=== PATIENT | female | born 1990 | race Caucasian/White ===

== ENCOUNTER 2016-11-27 19:45 | Inpatient (IN) | payer MEDICAID ==
[~2016-11-27] VITALS: Ht 170.2 cm; Wt 81.3 kg
--- NOTE | 2016-11-27 20:24 | NUR ---
PT TO ED VIA TRIAGE W/ C/O LOW BACK PAIN X 1 DAY W/ SOME VAGINAL BLEEDING PT STATES SHE IS 4 WEEKS . PT TO [facility] MD AWARE ORDERS RECEIVED CONT TO MONITOR
--- NOTE | 2016-11-27 20:57 | NUR ---
URINE COLLECTED AND RESULTED MD MCKEON
[2016-11-27 21:51] LABS: BASOPHIL % 0.6 % (0-2); PLATELET COUNT 262 x10^3mcL (130-400)
--- NOTE | 2016-11-27 21:58 | NUR ---
PT MEDICATED PER MD ORDER PT STATES SHE NO LONGER IS HAVING ANY DISCHARGE CONT TO MONITOR
--- NOTE | 2016-11-27 23:23 | NUR ---
REPORT CALLED TO FLOOR RADHA MCRAE ALL QUESTIONS ASKED AND ANSWERED PT TRANSFERED TO FLOOR VIA [facility] IN STABLE CONDITION W/ ALL PERSONAL BELONGINGS
[2016-11-27 23:43] VITALS: BP 124/62
--- NOTE | 2016-11-27 23:47 | NUR ---
RECEIVED PT FROM ED VIA NIKKO. ORIENTED PT TO ROOM AND SURRUONDINGS. IV NOTED TO LAC PATENT ADN INTACT. TELE 26 PLACED ON PT READING NSR. INSTRUCTED PT ON THE USE OF CALL LIGHT FOR ASSISTANCE. ENDORSE PT TO PRIMARY NURSE THOR
[2016-11-27 23:48] LABS: CHOLESTEROL/HDL RATIO 3.8; MAGNESIUM 2.1 mg/dL (1.8-2.4); PHOSPHOROUS 3.9 mg/dL (2.5-4.9)
--- NOTE | 2016-11-27 23:53 | NUR ---
RECEIVED REPORT FROM ED AND RESOURCE RN SURU. PATIENT DENIES PAIN AT THIS TIME. IV SITE TO LEFT AC, PATENT AND INTACT. IV FLUID STARTED PER DOCTOR'S ORDER. PATIENT ORIENTED TO ROOM AND CALL LIGHT. BED IN LOWEST POSITION. CALL LIGHT WITHIN REACH. WILL CONTINUE TO MONITOR.
[2016-11-27 23:54] LABS: FREE T4 0.82 ng/dL (0.76-1.46); FREE THYROXINE INDEX 2.3 ug/dL (1.4-4.5); T4(THYROXINE) 7.3 ug/dL (4.7-13.3)
[2016-11-28 00:35] LABS: microscopic required? NO
[2016-11-28 00:47] LABS: T3 TOTAL 1.11 ng/mL
[2016-11-28 00:51] LABS: UA SPECIFIC GRAVITY 1.015 (1.005-1.035); urine erythrocyte NEGATIVE (NEGATIVE)
[2016-11-28 01:08] LABS: AMPHETAMINE QUAL UR NONE DETECTED (NEG <=1000)
--- NOTE | 2016-11-28 05:06 | NUR ---
PATIENT RESTED IN INTERVALS THROUGHOUT THE NIGHT. NO DISTRESS NOTED. MEDICATED FOR BACK PAIN WITH MORPHINE IVP X 2 PER DOCTOR'S PRN ORDER AND MEDICATED FOR HEADACHE WITH TYLENOL PO X 1. PAIN MANAGED THROUGHOUT THE NIGHT. ALL NEEDS MET. SAFETY AND COMFORT MEASURES MAINTAINED. BED IN LOWEST POSITION. CALL LIGHT WITHIN REACH. WILL CONTINUE TO MONITOR AND ENDORSE TO NEXT SHIFT NURSE.
[2016-11-28 05:54] VITALS: BP 118/59
[2016-11-28 06:42] LABS: CARBON DIOXIDE 25.9 mmol/L (21-32); CHLORIDE SERUM 106 mmol/L (98-107); CREATININE SERUM 0.7 mg/dL (0.6-1.0); GFR1 > 60 mL/min; GLUCOSE SERUM 109 mg/dL (74-106); SODIUM SERUM 139 mmol/L (136-145)
[2016-11-28 06:47] LABS: BASOPHIL % 0.5 % (0-2); PLATELET COUNT 234 x10^3mcL (130-400); RED CELL DISTRIBUTION WIDTH 13.9 % (11.5-14.5)
--- NOTE | 2016-11-28 08:00 | NUR ---
PT AWAKE AND ALERT. TEMP 97.5. TELE #26 SINUS RHYTHM WITH PAC FIRST DEGREE BLOCK. RESP 18 EVEN. BREATH SOUNDS CLEAR. NO COUGH OR SOB. PULSE OX 97% RA. ABD SOFT, BOWEL TONES PRESENT. C/O DISCOMFORT TO LEFT LOWER QUADRANT AND AROUND TO LEFT FLANK 6/10 AT THIS TIME. LAST RECEIVED IV MORPHINE AT 0645 WITH MILD EFFECT. NO EDEMA. PULSES PRESENT SCD IN PLACE. IV PATENT LAC INFUSING NORMAL SALINE 100CC/HR. REMAINS NPO. AWAITING CONSULT WITH DR Sushant ZARCO. FAMILY AT BEDSIDE. SIDR RAILS UP X2. CALL LIGHT IN REACH.
--- NOTE | 2016-11-28 09:10 | NUR ---
DR DAVENPORT AND MEDICAL TEAM IN ON ROUNDS. CHARGE AND PRIMARY NURSE PRESENT. DISCUSSED PLAN OF CARE, AWAITING CONSULT WITH DR DELGADO. VERBALIZED UNDERSTANDING.
--- NOTE | 2016-11-28 09:30 | NUR ---
C/O PAIN TO LEFT LOWER QUADRANT OF ABD GOING AROUND TO LEFT LOWER BACK 9/10. MED WITH MORPHINE SULFATE 2MG IVP ORDERED.
--- NOTE | 2016-11-28 09:50 | NUR ---
REPORTS "PAIN NOW 08/20. LITTLE BIT BETTER." AMBULATES WELL TO BATHROOM. IV CONTINUES PATENT. WILL CONTINUE TO MONITOR.
[2016-11-28 10:09] VITALS: BP 96/54
--- NOTE | 2016-11-28 11:00 | NUR ---
DR DELGADO HERE. UPDATED WITH PT STATUS. COPY OF ULTRASOUND REVIEWED. ORDERED METHOTREXATE 100MG IM FOR 1200.
--- NOTE | 2016-11-28 12:30 | NUR ---
DISCUSSED WITH CHARGE NURSE TEODORA GARCIA WITH METHOTREXATE DOSE. DISCUSSED WITH LASHAY GARCIA DIRECTOR. POLICY REVIEWED. SHE WILL SPEAK WITH DR DAVENPORT FOR CLARIFICATION.
--- NOTE | 2016-11-28 13:09 | NUR ---
PT C/O LEFT LOWER ABD PAIN NOW COMING AROUND TO MIDDLE LOWER ABD REGION AND AROUND TO LEFT FLANK 10/21. NO FACIAL GRIMMACE NOTED. SPEECH CALM. MED WITH MORPHINE SULFATE 2MG IVP ORDERED. FAMILY AT BEDSIDE.
--- NOTE | 2016-11-28 13:20 | NUR ---
LASHAY GARCIA DIRECTOR HERE. DISCUSSED WITH CHARGE NURSE TEODORA GARCIA AND PRIMARY NURSE LATOYA GARCIA CONVERSATION WITH DR DAVENPORT.
--- NOTE | 2016-11-28 13:30 | NUR ---
DR MONTEJO HERE. LASHAY RN DIRECTOR UPDATED HER WITH CONVERSATION WITH DR DAVENPORT RE:METHOTREXATE ADMINISTRATION. DR MONTEJO SPOKE WITH DR CATHERINE. METHOTREXATE TO BE GIVEN BY RESIDENT. REGULAR DIET ORDERED. REPORTS "PAIN IS BETTER 08/20." VAGINAL DRAINAGE SPOTTING AT THIS TIME. WILL CONTINUE TO MONITOR. CALL LIGHT IN REACH.
--- NOTE | 2016-11-28 14:09 | NUR ---
DR JOSEPH AND DR CATHERINE HERE. REVIEWED PT STATUS, ORDER AND POLICY FOR METHOTREXATE.
[2016-11-28 14:32] VITALS: BP 105/67
--- NOTE | 2016-11-28 15:15 | NUR ---
DR CATHERINE IN TO SPEAK WITH PT AND DOCUMENTED. DR INFORMED PT AND THAT THERE WAS A HEARTBEAT THAT IF THE PREGNANACY CONTINUED THAT THE TUBE WOULD BURST AND SHE WOULD HAVE BLEEDING AND BE LIFE THREATENING. PT AND VERBALIZED UNDERSTANDING AND GAVE CONSENT TO TAKE MEDICATION.
--- NOTE | 2016-11-28 15:15 | NUR ---
DR CATHERINE IN TO SPEAK WITH PATIENT AT THIS TIME REGARDING METHOTREXATE MEDICATION ADMINISTRATION (SEE EMAR) INCLUDING SIDE EFFECTS, AND RISKS. AT BEDSIDE, ASSISTED WITH TRANSLATION NEEDED, PATIENT GAVE CONSENT TO TAKE THE MEDICATION. RADHA KLEIN AT BEDSIDE.
--- NOTE | 2016-11-28 15:42 | NUR ---
DR CATHERINE AND DR JOSEPH HERE. AGAIN REVIEWED WITH AND MEDICATION METHOTREXATE, ACTIONS, EFFECTS OF MEDICATION WHICH WILL CAUSE CRAMPING, VAGINAL SPOTTING TO BLEEDING, NAUSEA AND DIARRHEA. IT WILL CAUSE FETUS TO PASS. PATIENT AND VERBALIZED UNDERSTANDING. DR JOSEPH IN GOWN, GLOVES AND FACE MASK KERRI UP MEDICATION USING ASEPTIC TECHNIQUE. IM MEDICATION METHOTREXATE 100MG GIVEN IM TO LEFT BUTTOCKS. PT TOLERATED WELL. SHARPS PLACED IN BIOHAZARD BAG AND TAKEN TO PHARMACY DIRECTED. OTHER USED ITEMS PLACED IN YELLOW BAG AND TAKEN TO THUNDER IN HAZARDOUS WASTE DISPOSAL CONTAINER. WILL CONTINUE TO MONITOR PT. CALL LIGHT IN REACH.
--- NOTE | 2016-11-28 16:00 | NUR ---
HR=62. BP=95/55. PULSE OX 98% RA. MAP 66. CALL LIGHT IN REACH.
[2016-11-28 17:35] VITALS: BP 95/55
[2016-11-28 17:53] LABS: BILIRUBIN DIRECT 0.08 mg/dL (0.0-0.2); BILIRUBIN TOTAL 0.31 mg/dL (0.20-1.00); TOTAL PROTEIN, SERUM 6.6 g/dL (6.4-8.2)
[2016-11-28 17:57] LABS: ALBUMIN 3.3 g/dL (3.4-5.0)
--- NOTE | 2016-11-28 18:01 | NUR ---
PT C/O MILD DISCOMFORT TO LEFT LOWER ABD AND LOWER BACK 7/10. MED WITH MORPHINE SULFATE 2MG AND ZOFRAN 4MG IVP. AT BEDSIDE.
--- NOTE | 2016-11-28 18:30 | NUR ---
PT REPORTS NO PAIN RIGHT NOW. AT BEDSIDE. VOIDING QS CLEAR YELLOW URINE. DENIES ABD CRAMPING, NAUSEA OR DIZZINESS. NO VAGINAL SPOTTING. IV CONTINUES PATENT. CALL LIGHT IN REACH.
--- NOTE | 2016-11-28 19:20 | NUR ---
REPORT WITH THOR GARCIA AND SHIKHA GARCIA AT BEDSIDE WITH BEDSIDE REPORT. PT CONTINUES TO DENY PAIN. VOIDED 400CC YELLOW URINE. CARE ENDORSED AT THIS TIME. STATES "HAD WHEN SHE WAS 14 AND HAD MISCARRIAGE, THEN AGAIN LAST YEAR 4 WEEKS AND HAD MISCARRIAGE AGAIN HAD D&C."
--- NOTE | 2016-11-28 19:40 | NUR ---
PT RESTING IN BED WITH AT BEDSIDE. RESP EVEN AND UNLABORED, RA. NO C/O SOB OR CHEST PAIN AT THIS TIME. TELE # 26, NSR. IV INFUSING TO LAC W/ NS @ 100ML/HR. NO REDNESS, SWELLING OR PAIN AT IV SITE. PT DENIES IN ABD AT THIS TIME. PT STATES "NO PAIN SINCE THE MEDICATION WAS GIVEN" REFERRING TO METHATREXATE GIVEN FROM EDUCATED PT IT MAY TAKE SOME TIME FOR THE EFFECTS TO OCCUR, SUCH CRAMPING, BLEEDING, N/V. PT UNDERSTANDS AND REMAINS FREE OF PAIN AT THIS TIME. BED IN LOWEST POSITION, CALL LIGHT WITHIN REACH. WILL CONTINUE TO MONITOR.
[2016-11-28 21:03] VITALS: BP 105/62
--- NOTE | 2016-11-29 05:15 | NUR ---
PT RESTING IN BED, RESP EVEN AND UNLABORED ON RA. IV SITE TO LAC REMAINS PATENT INFUSING NS @ 100ML/HR, NO REDNESS, SWELLING OR PAIN PRESENT. NO C/O PAIN AT THIS TIME, MEDICATED FOR PAIN X1 (MORPHINE 2MG) @ 2335. PT STATED SHE WAS HAVING SOME NAUSEA, GAVE ZOFRAN. PT APPEARED FREE OF PAIN THROUGHOUT THE NIGHT, EDUCATED PT TO USE HAT TO URINATE IN AND ALLLOW FOR EXAMINATION BY NURSE BEFORE FLUSHING. PT STATES SHE UNDERSTANDS. EDUCATED PT ON THE EFFECTS ON METHPTREXATE, PT ANTICIPATING CRAMPING AND BLEEDING, DENIES THESE EFFECTS AT THIS TIME. WILL CONTINUE TO MONITOR. CALL LIGHT WITHIN REACH, BED IN LOWEST POSITION.
[2016-11-29 05:40] VITALS: BP 105/51
[2016-11-29 06:20] LABS: BASOPHIL % 0.5 % (0-2); PLATELET COUNT 233 x10^3mcL (130-400); RED CELL DISTRIBUTION WIDTH 14.2 % (11.5-14.5)
[2016-11-29 06:46] LABS: CALCIUM 7.8 mg/dL (8.5-10.1); CARBON DIOXIDE 24.8 mmol/L (21-32); CHLORIDE SERUM 106 mmol/L (98-107); CREATININE SERUM 0.6 mg/dL (0.6-1.0); GFR1 > 60 mL/min; GLUCOSE SERUM 94 mg/dL (74-106); PHOSPHOROUS 3.9 mg/dL (2.5-4.9); POTASSIUM SERUM 3.8 mmol/L (3.5-5.1); SODIUM SERUM 137 mmol/L (136-145)
--- NOTE | 2016-11-29 07:25 | NUR ---
RECEIVED PT. IN BED A/A/O X4. NO SOB, NO N/V NOTED. DENIES ANY PAIN AT THIS TIME. PT. STATED SHE HAS SPOTTING AT TIMES. NS RUNNING AT 100 CC/HR. VIA IV H/L AT L AC. SCD TO BLE MAINTAINED. BED IN LOW POS., CALL LIGHT WITHIN REACH. SIDE RAILS UP X3.
--- NOTE | 2016-11-29 08:41 | NUR ---
DR. RAMSAY, THE RESIDENTS, CHARGE NURSE, AND ATTENDING NURSE AT BEDSIDE. CAREPLAN DISCUSSED WITH PT. ALL QUESTIONS ANSWERED.
--- NOTE | 2016-11-29 10:30 | NUR ---
C/O FEELING NAUSEATED; ZOFRAN 4MG IV GIVEN.
[2016-11-29 10:52] VITALS: BP 137/86
--- NOTE | 2016-11-29 14:00 | NUR ---
PT. STATED HER IV MACHINE PEEPS FREQUENTLY DUE TO IV SITE BEING AT THE ANTECUBITAL AREA. IV H/L TO L AC REMOVED. NEW IV H/L RESTARTED AT R WRIST WITH GAUGE #22.
[2016-11-29 15:05] VITALS: BP 100/56
--- NOTE | 2016-11-29 17:25 | NUR ---
REMAINS IN STABLE CONDITION AT THIS TIME. NO ACUTE DISTRESS NOTED.
[2016-11-29 17:47] VITALS: BP 100/55
--- NOTE | 2016-11-29 19:40 | NUR ---
PT RESTING IN BED WITH AT BEDSIDE. PT RESP EVEN AND UNLABORED ON RA.M DENIES SOB. PT DENIES VAG BLEEDING, CRAMPS, VOMITING. PT REPORTS NAUSEA, WILL MEDICATE PER ORDER. IV INFUSING TO RT WRIST NS @ 100ML/HR. NO REDNESS, SWELLING OR PAIN PRESENT AT IV SITE. TELE # 26, SR 74, NO C/O CP AT THIS TIME. PT REPORTS FEELING SOME DIZZINESS UPON AMBULATION TO RESTROOM, EDUCATED PT TO CALL FOR ASSISTANCE BEFORE GETTING UP. EXPLAINED AND WILL FURTHER DEMONSTRATE ORTHOSTATIC HYPOTENSION PREVENT MEASURES UPON AMBULATION. PT DENIES CRAMPING, VAG BLEEDING AND VOMITING, EXPRESSED SOME FEELINGS OF NAUSEA ONLY. PT STATED DINNER WAS TOLERATED WELL, CALL LIGHT WITHIN REACH, BED IN LOWEST POSITION, WILL CONTINUE TO MONITOR.
--- NOTE | 2016-11-29 20:05 | NUR ---
PT MEDICATED W/ ZOFRAN 4 MG IV FOR C/O NAUSEA. NO VOMITING NOTED.
[2016-11-29 20:44] VITALS: BP 110/64
--- NOTE | 2016-11-29 20:45 | NUR ---
PT RESTING MORE COMFORTABLY. NO FURTHER C/O NAUSEA.
[2016-11-30 05:20] VITALS: BP 99/57
--- NOTE | 2016-11-30 05:59 | NUR ---
PT RESTING WELL THROUGH NIGHT, PAIN UNDER CONTROL NO MEDS NEEDED FOR PAIN. GAVE AMBIEN FOR SLEEP. IV INFUSING TO RT WRIST, NO REDNESS, SWELLING OR PAIN. PT DENIES VAG BLEEDING, CRAMPS, AND VOMITING. PT HAD NAUSEA EARLY IN SHIFT AND GAVE ZOFRAN. VITAL SIGNS REMAINED STABLE, MONITORING HCG LEVELS. PT STATES SOME DIZZINESS UPON STANDING, TELE # 26. NO C/O CP AT THIS TIME. PT SCHEDULED FOR US OB LIMITED AT APPROX 0700; BLADDER NEEDS TO BE FULL, PT UNDERSTANDS. CALL LIGHT WITHIN REACH, BED IN LOWEST POSITION, WILL CONTINUE TO MONITOR.
[2016-11-30 06:18] LABS: CARBON DIOXIDE 28.6 mmol/L (21-32); CHLORIDE SERUM 105 mmol/L (98-107); CREATININE SERUM 0.6 mg/dL (0.6-1.0); GFR1 > 60 mL/min; GLUCOSE SERUM 96 mg/dL (74-106); PHOSPHOROUS 3.6 mg/dL (2.5-4.9); POTASSIUM SERUM 3.9 mmol/L (3.5-5.1); SODIUM SERUM 138 mmol/L (136-145)
[2016-11-30 06:20] LABS: BASOPHIL % 0.5 % (0-2); PLATELET COUNT 227 x10^3mcL (130-400); RED CELL DISTRIBUTION WIDTH 14.5 % (11.5-14.5)
--- NOTE | 2016-11-30 08:15 | NUR ---
PATIENT ALERT AND ORIENT x4. TELE #26, DENIES CHEST PAIN. PULSES PRESENT AND EQUAL, NO EDEMA NOTED. LUNG SOUND CTA TO RA. BS ACTIVE, ABD SOFT AND NONDISTENDED.REPORTS NO PROBLEM VOIDING, DENIES VAGINAL BLEEDING OR CRAMPS. SKIN WARM DRY AND INTACT. DENIES PAIN OR NAUSEA AT THIS TIME.IV TO RIGHT WRIST, WNL, NS @100. AT BEDSIDE, BED IN LOWEST POSITION AND CALL LIGHT IN REACH
[2016-11-30 09:59] VITALS: BP 100/49
--- NOTE | 2016-11-30 12:10 | NUR ---
REPORTS PAIN IS NOT RELEIVED, /, LOWER BACK AND LEFT SIDE OF ABD. GIVEN NORCO. REPORTED NAUSEA GIVEN ZOFRAN
--- NOTE | 2016-11-30 13:03 | NUR ---
WITNESSED METHOTREXIATE INJECTION BEING DRAWN UP AND INJECTED INTO THE LEFT BACK BY DR. JOSEPH. ALL OBJECTS USED IN INJECTION PUT IN CHEMOTHERAPY BAG AND YELLOW BAG
[2016-11-30 14:00] VITALS: BP 103/63
--- NOTE | 2016-11-30 15:22 | NUR ---
PATIENT SLEEPING, BREATHING EVEN AND UNLABORED, NO DISTRESS NOTED, AT BEDSIDE
[2016-11-30 16:29] VITALS: BP 100/62
--- NOTE | 2016-11-30 16:42 | NUR ---
REPORTS PAIN 9/10 IN LOWER BACK, GIVEN MORPHINE
--- NOTE | 2016-11-30 18:09 | NUR ---
REPORTS PAIN IS RELIEVED. REPORTS NAUSEA, GIVEN ZOFRAN. FAMILY AT BEDSIDE
--- NOTE | 2016-11-30 19:14 | NUR ---
REPORT GIVEN TO ONCOMING NURSE, NO DISTRESS NOTED, BREATHING EVEN AND UNLABORED
--- NOTE | 2016-11-30 20:21 | NUR ---
PATIENT C/O DIZZINESS AND NAUSEA. ZOFRAN NOT DUE YET. PROVIDED PATIENT WITH ICE CHIPS AND EMESIS BAG ALONG WITH SALINE CRACKERS. INFORMED DR. CARRANZA OF PATIENT C/O DIZZINESS AND NAUSEA. PER DR. CARRANZA, WILL EVALUATE PATIENT. AWAITING NEW ORDERS.
--- NOTE | 2016-11-30 21:24 | NUR ---
NAUSEA MEDICATION GIVEN.
[2016-11-30 22:09] VITALS: BP 99/59
--- NOTE | 2016-11-30 23:11 | NUR ---
PATIENT AWAKE AT THIS TIME. CALL LIGHT WITHIN REACH. VERBALIZED RELIEF FROM NAUSEA MEDICATION GIVEN EARILER.
[2016-12-01 05:54] VITALS: BP 92/47
[2016-12-01 05:58] LABS: BASOPHIL % 0.6 % (0-2); PLATELET COUNT 223 x10^3mcL (130-400); RED CELL DISTRIBUTION WIDTH 13.9 % (11.5-14.5)
[2016-12-01 06:10] LABS: CALCIUM 7.9 mg/dL (8.5-10.1); CARBON DIOXIDE 25.3 mmol/L (21-32); CHLORIDE SERUM 106 mmol/L (98-107); CREATININE SERUM 0.6 mg/dL (0.6-1.0); GFR1 > 60 mL/min; GLUCOSE SERUM 85 mg/dL (74-106); SODIUM SERUM 138 mmol/L (136-145)
--- NOTE | 2016-12-01 08:24 | NUR ---
PATIENT AWAKE, ALERT AND ORIENTED, DENIES DIZZINESS. S1 AND S2 HEARD ON AUSCULTATION, NO DISTRESS NOTED. PULSES PRESENT, NO EDEMA NOTED. LUNG SOUNDS CTA TO RA, NO SOB NOTED. BS ACTIVE, LBM 11/01, REPORTS FORMED STOOL, DENIES NAUSEA OR ABD PAIN. RPORTS NO VAGINAL BLEEDING OR CRAMPING, NO PROBLEM URINATING. AMB STEADY. SKIN WARM DRY AND INTACT. DENIES PAIN AT THIS TIME. IV TO RW WNL, INFUSING NS @100. PUT HAT IN TOILET AND INSTRUCTED PATIENT IF ANY BLEEDING OR ABNORMAL TO CALL AND NOT FLUSH. AT BEDSIDE
[2016-12-01 09:38] VITALS: BP 94/46
--- NOTE | 2016-12-01 11:51 | NUR ---
DR. ZARCO TALKED TO PATIENT VIA TELEPHONE ABOUT PROCEDURE. ALL QUESTIONS WERE ANSWERED BY THE DR. WITNESSED CONSENT FOR PROCEDURE. PATIENT GIVEN CHG WIPEDS AND INSTRUCTED TO USE PRIOR TO PROCEDURE
[2016-12-01 13:54] VITALS: BP 111/63
--- NOTE | 2016-12-01 14:24 | NUR ---
PATIENT TAKEN DOWN TO OR BY OR NURSE, VSS, CHART WITH PATIENT
--- NOTE | 2016-12-01 16:11 | NUR ---
1530: RECIEVED REPORT FROM RADHA VEGA IN OR 1600: PATIENT BACK FROM OR, VSS STABLE, NO DISTRESS NOTED. ABDOMINAL INCISION DRESSING COVERED WITH DRESSING, CDI.
[2016-12-01 16:42] VITALS: BP 105/52
--- NOTE | 2016-12-01 18:16 | NUR ---
PATIENT REPORTS LOWER ABD PAIN 7/10, GIVEN MORPHINE. REPORTS NAUSEA, GIVEN REGLAN. TOLERATED DINNER WELL. NO DISTRESS NOTED, FAMILY AT BEDSIDE
--- NOTE | 2016-12-01 19:13 | NUR ---
PATIENT SLEEPING, NO DISTRESS NOTED, BREATHING EVEN AND UNLABORED. AT BEDSIDE, REPORT GIVEN TO ONCOMING NURSE
[2016-12-01 19:40] VITALS: BP 107/57
--- NOTE | 2016-12-01 23:01 | NUR ---
PATIENT C/O PAIN TO STOMACH. EDUCATED PATIENT IMPORTANCE OF EARLY AMBULATION. PATIENT VERBALIZED HAVING SOME SMALL FLATULANCE. ADMINISTERED PAIN MEDICATION.
--- NOTE | 2016-12-02 01:11 | NUR ---
PATIENT C/O PAIN AND BURNING SENSATION TO IV SITE TO RIGHT WRIST. REQUESTING FOR CHANGE. REMOVED PREVIOUS IV SITE AND PLACED NEW IV SITE TO LEFT HAND 22 GUAGE, PATIENT TOLERATED WELL.
[2016-12-02 06:31] LABS: BASOPHIL % 0.2 % (0-2); PLATELET COUNT 223 x10^3mcL (130-400); RED CELL DISTRIBUTION WIDTH 14.1 % (11.5-14.5)
[2016-12-02 06:57] LABS: CALCIUM 8.2 mg/dL (8.5-10.1); CARBON DIOXIDE 24.1 mmol/L (21-32); CHLORIDE SERUM 107 mmol/L (98-107); CREATININE SERUM 0.6 mg/dL (0.6-1.0); GFR1 > 60 mL/min; GLUCOSE SERUM 140 mg/dL (74-106); MAGNESIUM 1.9 mg/dL (1.8-2.4); PHOSPHOROUS 3.2 mg/dL (2.5-4.9); POTASSIUM SERUM 4.1 mmol/L (3.5-5.1); SODIUM SERUM 137 mmol/L (136-145)
--- NOTE | 2016-12-02 07:54 | NUR ---
LAB CALLED FOR WBC 19.0, PAGED DR. MONTEJO
--- NOTE | 2016-12-02 08:09 | NUR ---
AWAKE, ALERT AND ORIENTED. S1 AND S2 HEARD ON AUSCULTATION. PULSES PRESENT, NO EDEMA NOTED. LUNG SOUNDS CTA TO RA. BS ACTIVE, DENIES NAUSEA, REPORTS GAS. REPORTS NO PROBLEM URINATING. AMB STEADY, BRP. SKIN WARM AND DRY, DRESSING TO LOWER ABD, CDI. PAIN IN LOWER ABD 3/10 AT THIS TIME, REPORTS TOLERABLE. IV NS TO LEFT WRIST, NS INFUSING @100. CALL LIGHT WITHIN REACH
--- NOTE | 2016-12-02 09:11 | NUR ---
DR MONTEJO MADE AWARE OF WBC
[2016-12-02 10:10] VITALS: BP 107/56
[2016-12-02 13:12] LABS: BASOPHIL % 0.3 % (0-2); PLATELET COUNT 222 x10^3mcL (130-400); RED CELL DISTRIBUTION WIDTH 14.2 % (11.5-14.5)
[2016-12-02] MEDS ORDERED: PRENATAL LOW IR1 TA1 PO (15:31)
[2016-12-02] MEDS ORDERED: FERROUS SULFAT325 M2 PO (15:31)
[2016-12-02] MEDS ORDERED: NORCO1 TA2 PO (15:44)
[2016-12-02 15:55] VITALS: BP 107/56
[2016-12-02 16:27] VITALS: BP 101/50
--- NOTE | 2016-12-02 17:04 | NUR ---
REVIEWED DISCHARGE INSTRUCTIONS WITH PATIENT, VERBALLY ACKNOWLEDGE UNDERSTANDING. IV D/C, CATHETER INTACT. TELE TAKEN OFF. PRESCRIPTION GIVEN. PICTURE TAKEN OF SURGICAL INCISION, WELL APPROXIMATED, NO DRAINAGE NOTED, CLEAN DRESSING PLACED ON INCISION. TAKEN DOWN TO LOBBY BY KAE
== END 2016-12-02 17:05 | disposition home or self-care (01) | DRG 545 ==
LOC: ED 19:45 → MU 22:43 → DU 22:43 → MU 12-01 12:04
PROVIDERS: Emergency Medicine; Family Medicine; Family Medicine Sports Medicine; Obstetrics & Gynecology; ADMIT Family Medicine
PROC: 10D27ZZ Extraction of Products of Conception, Ectopic, Via Natural or Artificial Opening (ICD-10-PCS; principal; 2016-12-01 14:00)
DX: O00.102 Left tubal pregnancy without intrauterine pregnancy (principal); E44.0 Moderate protein-calorie malnutrition; E83.51 Hypocalcemia; E78.5 Hyperlipidemia, unspecified; F31.9 Bipolar disorder, unspecified
CPT/HCPCS: 84439; 94150; J0330; J0690; J1644; J2175; J2250; J2270; J2405; J2704; J2710; J2765; J3010; J3490; J7030; J7120; J9260; Q0163

== ENCOUNTER 2017-01-21 20:41 | Emergency (ER) | payer MEDICAID ==
[~2017-01-21 20:41] MED LIST: FERROUS SULFAT325 M2 PO; NORCO1 TA2 PO; PRENATAL LOW IR1 TA1 PO
[2017-01-21 21:13] VITALS: BP 131/80
== END 2017-01-21 23:28 | disposition left against medical advice (07) ==
LOC: ED 20:41
DX: Z53.21 Procedure and treatment not carried out due to patient leaving prior to being seen by health care provider (principal)

== ENCOUNTER 2017-06-24 20:32 | Emergency (ER) | payer MEDICAID ==
[~2017-06-24] VITALS: Ht 170.2 cm; Wt 85.3 kg
[2017-06-24 20:52] VITALS: Ht 170.2 cm; Wt 85.3 kg
[2017-06-24 21:53] LABS: BASOPHIL % 0.5 % (0-2); PLATELET COUNT 260 x10^3mcL (130-400); RED CELL DISTRIBUTION WIDTH 13.7 % (11.5-14.5)
[2017-06-24 22:05] LABS: CALCIUM 8.2 mg/dL (8.5-10.1); CARBON DIOXIDE 28.4 mmol/L (21-32); CHLORIDE SERUM 105 mmol/L (98-107); CREATININE SERUM 0.7 mg/dL (0.6-1.0); GFR1 > 60 mL/min; GLUCOSE SERUM 124 mg/dL (74-106); POTASSIUM SERUM 3.6 mmol/L (3.5-5.1); SODIUM SERUM 141 mmol/L (136-145)
[2017-06-24 22:09] LABS: ALBUMIN 3.4 g/dL (3.4-5.0); ALKALINE PHOSPHATASE 98 U/L (46-116); ALT/SGPT 27 U/L (14-59); AST/SGOT 20 U/L (15-37); BILIRUBIN TOTAL 0.18 mg/dL (0.20-1.00); LIPASE 84 IU/L (73-393); TOTAL PROTEIN, SERUM 6.9 g/dL (6.4-8.2)
[2017-06-25 00:59] VITALS: BP 105/56
== END 2017-06-25 00:59 | disposition home or self-care (01) ==
LOC: ED 20:32
PROVIDERS: Emergency Medicine
DX: N83.209 Unspecified ovarian cyst, unspecified side (principal); Z90.89 Acquired absence of other organs
CPT/HCPCS: J1885; J2270; J2405; J7030

== ENCOUNTER 2017-08-17 20:26 | Emergency (ER) | payer OTHER ==
[~2017-08-17] VITALS: Ht 170.2 cm; Wt 86.2 kg
[2017-08-17 20:41] VITALS: Ht 170.2 cm; Wt 86.2 kg
[2017-08-17 21:07] LABS: microscopic required? NO
[2017-08-17 21:26] LABS: UA SPECIFIC GRAVITY 1.015 (1.005-1.035); urine erythrocyte NEGATIVE (NEGATIVE)
[2017-08-17 21:26] LABS: BASOPHIL % 0.5 % (0-2); PLATELET COUNT 246 x10^3mcL (130-400); RED CELL DISTRIBUTION WIDTH 13.7 % (11.5-14.5)
[2017-08-17 23:54] VITALS: BP 121/68
== END 2017-08-17 23:54 | disposition home or self-care (01) ==
LOC: ED 20:26
PROVIDERS: Emergency Medicine
DX: O20.0 Threatened abortion (principal); R10.32 Left lower quadrant pain; Z3A.01 Less than 8 weeks gestation of pregnancy; Z90.89 Acquired absence of other organs
CPT/HCPCS: 36415

== ENCOUNTER 2018-02-17 12:59 | Emergency (ER) | payer MEDICAID ==
[~2018-02-17] VITALS: Ht 170.2 cm; Wt 82.1 kg
[2018-02-17 14:27] VITALS: Ht 170.2 cm; Wt 82.1 kg
[2018-02-17 16:33] VITALS: BP 115/79
== END 2018-02-17 16:33 | disposition home or self-care (01) ==
LOC: ED 12:59
DX: R10.2 Pelvic and perineal pain (principal); R30.9 Painful micturition, unspecified; F31.9 Bipolar disorder, unspecified; Z87.42 Personal history of other diseases of the female genital tract; Z90.89 Acquired absence of other organs

== ENCOUNTER 2018-09-05 15:32 | Emergency (ER) | payer OTHER ==
[~2018-09-05] VITALS: Ht 170.2 cm; Wt 86.6 kg
[2018-09-05 15:47] VITALS: Ht 170.2 cm; Wt 86.6 kg
[2018-09-05 18:26] LABS: BASOPHIL % 0.7 % (0-2); PLATELET COUNT 293 x10^3mcL (130-400); RED CELL DISTRIBUTION WIDTH 14.1 % (11.5-14.5)
[2018-09-05 18:43] LABS: CALCIUM 9.4 mg/dL (8.5-10.1); CARBON DIOXIDE 25.7 mmol/L (21-32); CHLORIDE SERUM 105 mmol/L (98-107); CREATININE SERUM 0.8 mg/dL (0.6-1.0); GFR1 > 60 mL/min; GLUCOSE SERUM 96 mg/dL (74-106); POTASSIUM SERUM 4.2 mmol/L (3.5-5.1); SODIUM SERUM 142 mmol/L (136-145)
[2018-09-05 18:48] LABS: ALBUMIN 3.9 g/dL (3.4-5.0); ALKALINE PHOSPHATASE 80 U/L (46-116); ALT/SGPT 56 U/L (14-59); AST/SGOT 23 U/L (15-37); BILIRUBIN TOTAL 0.29 mg/dL (0.20-1.00); TOTAL PROTEIN, SERUM 7.5 g/dL (6.4-8.2)
[2018-09-05 20:10] VITALS: BP 107/68
== END 2018-09-05 20:10 | disposition home or self-care (01) ==
LOC: ED 15:32
PROVIDERS: Emergency Medicine
DX: N64.3 Galactorrhea not associated with childbirth (principal); M54.5 Low back pain; F31.9 Bipolar disorder, unspecified; Z90.49 Acquired absence of other specified parts of digestive tract
CPT/HCPCS: 36415